=== PATIENT | male | born 2000 | race Caucasian/White ===

== ENCOUNTER 2018-12-16 22:32 | Emergency (ER) | payer BC, SELFPAY ==
[2018-12-16 22:34] VITALS: BP 161/99; PULSE 110; RESP 18; TEMP 36.6; O2SAT 97; BMI 33.0
--- NOTE | 2018-12-16 22:38 | RAD_ITS ---
STUDY: X-RAY - RIGHT FOOT CLINICAL: Male, 18 years old. Trauma. Swelling and bruising. TECHNIQUE: 3 view(s) of the foot. COMPARISON: None. FINDINGS: Normal talus, calcaneus, and tarsal bones. Normal visualized subtalar, talonavicular, calcaneocuboid, tarsal and tarsometatarsal articulations. Normal metatarsi. Normal metatarsophalangeal joint of the great toe. Normal tibial and fibular sesamoid bones. Normal interphalangeal joint of the great toe. Normal phalanges of the great toe. Normal second through fifth metatarsophalangeal joints. Normal interphalangeal joints and phalanges of the lesser toes. The soft tissue structures are unremarkable. RAD/Foot min 3 Views IMPRESSION: Normal x-ray examination of the foot. Electronically Signed: Keon Peñaloza MD at 22:53 EST , Service support ,
[2018-12-16 23:14] VITALS: RESP 16
--- NOTE | 2018-12-16 23:16 | ED.VISSUMM ---
- ER Visit Summary Date of Service: 12/16/18 Chief Complaint: Right foot and ankle injury History of Present Illness: The patient is a 18 M who presents with injury to his right foot and ankle that began today. Patient states he inverted his ankle. Patient states pain is worse over the lateral aspect of his right ankle and midfoot. Patient states the pain is worse with movement. Patient admits to some tingling in his foot. Patient denies any weakness. Patient denies any pain over the proximal fibula. Patient denies any other injuries. Physical Examination: Vital signs are stable. Patient is afebrile. Patient is in no acute distress. Musculoskeletal exam reveals tenderness over the lateral aspect of the right midfoot and ankle. There is no bony crepitance or step-off. There is no deformity noted. Range of motion was limited in all motions of the right ankle secondary to pain. There is a strong pedal pulse on the right. Sensation was intact to light touch in all digits. Capillary refill was less than 2 seconds in all digits. There is no tenderness over the proximal fibula or fifth metatarsal. Test Results: X-rays of the right foot were obtained. There is no acute fracture. This was interpreted by the radiologist and reviewed by myself. Emergency Department Course and Treatment: Patient was given a walking boot. Patient was instructed to follow-up with his primary care physician in 5 to 7 days. Patient was instructed to take Tylenol or ibuprofen as needed for pain. Patient understood and was agreeable with the plan. All questions were answered. Disposition: Discharge home Impression: Right ankle sprain This note was generated with [employer] dictation software. It may contain incorrect words, spelling, and punctuation that were not noted in review of the chart prior to signing ED Disposition - Plan for ED Patient: Disposition: Home or Assisted Living Diagnosis: Right ankle sprain Instructions: Sprain, Ankle, with X-Ray Referrals: NOT,DEFINED [Primary Care Provider] - 5-7 Days
[2018-12-16 23:59] VITALS: RESP 16
== END 2018-12-16 23:59 | disposition home or self-care (01) ==
PROVIDERS: Emergency Provider Emergency Medicine
DX: S93.401A Sprain of unspecified ligament of right ankle, initial encounter (principal); S90.31XA Contusion of right foot, initial encounter; X50.1XXA Overexertion from prolonged static or awkward postures, initial encounter; Y92.9 Unspecified place or not applicable; Y99.9 Unspecified external cause status
CPT/HCPCS: 73630; 99282